=== PATIENT | male | born 1980 | race Caucasian/White ===

== ENCOUNTER 2016-06-07 08:07 | Outpatient (CLI) ==
[2014-11-29 14:15] VITALS: BMI 25.1
[2016-06-07 08:32] LABS: BASOPHILS % (AUTO) 0.3 % (0.0-3.0); EOSINOPHILS # (AUTO) 0.2 K/ul (0.0-0.7); EOSINOPHILS % (AUTO) 2.8 % (0.0-7.0); HEMATOCRIT 39.4 % (42.0-52.0); HEMOGLOBIN 12.5 g/dl (14.0-18.0); IMMATURE GRANULOCYTE % (AUTO) 0.1 % (0.0-5.0); LYMPHOCYTES # (AUTO) 2.8 K/uL (0.60-3.4); MEAN CORPUSCULAR HEMOGLOBIN 28.4 pg (27.0-31.0); MEAN CORPUSCULAR HGB CONC 31.7 (31.8-35.4); MEAN CORPUSCULAR VOLUME 89.5 fl (80.0-94.0); MONOCYTES # (AUTO) 0.7 K/uL (0.4-2.0); MONOCYTES % (AUTO) 8.9 (0-10); NEUTROPHILS # (AUTO) 3.9 K/ul (2.0-6.9); NEUTROPHILS % (AUTO) 50.9; PLATELET COUNT 291 10^3/uL (140-440); WHITE BLOOD COUNT 7.57 K/ul (4.2-10.2)
--- NOTE | 2016-06-07 08:49 | DI ---
EXAM: Three views of the cervical spine HISTORY: Neck pain. COMPARISON: None FINDINGS: There is no acute compression fracture or subluxation. There is straightening the cervica l spine. There is narrowing and anterior disc osteophyte noted at C6-C7. The facets and posterior processes are normal. The odontoid process is unremarkable as visualized. IMPRESSION: Mild disc space narrowing and anterior disc osteophyte noted at C6-C7. Straightening t he cervical spine may represent positioning or muscle spasm.
--- NOTE | 2016-06-07 08:53 | DI ---
EXAM: Thoracic spine three views HISTORY: Back pain FINDINGS / IMPRESSION: Mild scoliosis. There is slight exaggeration of cervical lordosis. No acut e fracture or significant loss of vertebral body height. Mild degenerative endplate changes mid tho racic level.
--- NOTE | 2016-06-07 08:56 | DI ---
EXAM: Lumbar spine radiographs. HISTORY: Back pain. COMPARISON: None available. Abdominal CT 11/13/2014. TECHNIQUE: 5 views of the lumbar spine. FINDINGS: Moderate right convex curvature centered near L2-3 noted. Alignment is normal. Vertebra l body heights are maintained. Disc heights are preserved in the lumbar spine. Mild chronic anteri or wedging deformity of T12 noted. Mild endplate osteophyte formation seen in the lower thoracic an d upper lumbar spine. No fracture or subluxations seen. Sacral arcuate lines are intact IMPRESSION: 1. Right convex upper lumbar curvature. 2. Mild degenerative disc disease of the lower thoracic and upper lumbar spine. 3. Chronic mild anterior wedging deformity of T12.
[2016-06-07 09:10] LABS: ALBUMIN 3.4 g/dL (3.4-5.0); ALBUMIN/GLOBULIN RATIO 1.1; ANION GAP 12.5; BILIRUBIN,TOTAL 0.17 mg/dL (0.00-1.20); BUN/CREATININE RATIO 15.53; CALCIUM 8.8 mg/dL (8.2-10.2); CHOL/HDL RATIO 5.2 (4.5-6.4); CREATININE 1.03 mg/dL (0.60-1.10); POTASSIUM 4.5 mmol/L (3.5-5.1); TOTAL PROTEIN 6.5 g/dL (6.4-8.2)
== END 2016-06-07 08:08 | disposition home or self-care (01) ==
LOC: LAB 08:07
PROVIDERS: ATTEND Nurse Practitioner Family
DX: Z00.00 Encounter for general adult medical examination without abnormal findings (principal); Z86.59 Personal history of other mental and behavioral disorders; M54.9 Dorsalgia, unspecified
CPT/HCPCS: 36415; 80053; 80061; 84439; 84443; 85025

== ENCOUNTER 2016-06-08 12:11 | Outpatient (CLI) ==
[2014-11-29 14:15] VITALS: BMI 25.1
--- NOTE | 2016-06-09 13:48 | MRI ---
EXAM: Lumbar spine MRI without contrast. HISTORY: Lumbar disc degeneration. COMPARISON: Lumbar spine radiographs 06/07/2016, thoracic spine radiographs 06/07/2016, CT abdomen and pelvis 11/13/2014 and chest radiographs 05/29/2009. TECHNIQUE: Multiplanar, multisequence MR images were acquired of the lumbar spine without contrast. FINDINGS: Small ribs are present bilaterally at T12. There are five non-rib bearing lumbar type ve rtebra. There is mild kyphosis in the lower thoracic spine due to mild chronic anterior wedging of the T11 vertebra and moderate chronic anterior wedging of T12. There is irregularity of the endplate s at T10-11 and T11-12 with small chronic Schmorl's nodes from T10 through L2. There is minor chroni c anterior wedging of L1 with mildly irregular biconcave endplates. There is mild accentuation of th e usual lumbar lordosis and there is 2 mm retrolisthesis of L2 on L3 and 2.5 mm anterolisthesis of L 5 on S1 in this patient with chronic bilateral L5 pars interarticularis defects. Intrinsic bone mar row signal is normal. There is osteophytosis with mild disc space narrowing disc desiccation at L2- 3 and mild disc space narrowing at L5-S1. Conus medullaris ends at T12-L1 and has normal signal int ensity. The visualized liver, gallbladder, spleen and kidneys are unremarkable. Respiratory motion limits d etail. There are no paravertebral masses. There is an intermediate T2 1.5 cm x 1.8 cm left adrenal lesion that is unchanged compared to 11/13/2014 and statistically most likely represents an adenoma . L1-2: The intervertebral disc is normal. L2-3: There is retrolisthesis of L2 on L3 and there is a mild disc bulge that minimally narrows the inferior neural foramina bilaterally. Mild bilateral facet and ligamentum flavum hypertrophy is pr esent. There is no central canal stenosis or significant foraminal stenosis. L3-4: There is a minimal disc bulge that is considered physiologic. A tiny chronic Schmorl's node is present on the left L4 superior endplate. There is no central canal stenosis or foraminal stenos is. L4-5: The intervertebral disc is normal. There is mild bilateral hypertrophic facet arthropathy an d ligamentum flavum hypertrophy without foraminal stenosis or central canal stenosis. L5-S1: There is anterolisthesis of L5 on S1 due to chronic bilateral L5 pars interarticularis defec ts. There is minor bilateral foraminal stenosis, greater on the left. There is no central canal st enosis. IMPRESSION: 1. Mild chronic anterior wedging T11 vertebrae. Moderate chronic anterior wedging of T12. 2. Mild lower thoracic and upper lumbar degenerative endplate changes with small chronic Schmorl's nodes from T10-L2 and a tiny chronic Schmorl's node at L4. 3. 2.5 mm anterolisthesis L5 on S1 due to chronic bilateral L5 pars interarticularis defects.
== END 2016-06-08 12:12 | disposition home or self-care (01) ==
LOC: RAD 12:11
PROVIDERS: ATTEND Nurse Practitioner Family
DX: M51.36 Other intervertebral disc degeneration, lumbar region (principal)

== ENCOUNTER 2016-07-03 14:50 | Outpatient (CLI) ==
[2014-11-29 14:15] VITALS: BMI 25.1
--- NOTE | 2016-07-03 15:49 | CT ---
EXAM: CT abdomen pelvis without contrast HISTORY: Right upper quadrant pain COMPARISON: CT abdomen pelvis 11/13/2014 and 02/17/2010 and MRI lumbar spine 06/08/2016 TECHNIQUE: Serial axial images of the abdomen pelvis were performed from the lung bases through the inferior pelvis without contrast. These were viewed in multiple planes. FINDINGS: The lung bases are clear. Evaluation is limited due to lack of contrast. The liver is unremarkable. Gallbladder is contracte d with no visualized stones. The adrenal glands are unchanged with a low attenuation left adrenal n odule measuring 1.7 cm in diameter with Hounsfield units consistent with adenomas. The right kidney demonstrates four nonobstructing stones. The largest measuring 0.5 cm in diameter. There is no hy dronephrosis, hydroureter or distal ureteral stone. The left kidney demonstrates no visualized ston e. There is no hydronephrosis, hydroureter or stone. The spleen is unremarkable. The pancreas is unremarkable. The stomach is mildly distended. Small bowel in the abdomen pelvis is unremarkable. The colon demonstrates stool and gas distended t hroughout the transverse colon and cecum. The appendix is not visualized. There is no inflammatory changes in the right lower quadrant identified. Urinary bladder is partially distended. Prostate is unremarkable. There is no free air, free fluid or lymphadenopathy. There is degenerative diseas e of the spine with stable compression deformity at T12 with pars defects at L5. IMPRESSION: 1. No acute intra-abdominal or pelvic process to account for patient's symptoms. 2. Nonobstructing right renal stones. 3. Scattered degenerative disease of the lumbar spine is unchanged in comparison to prior study. 4. Unchanged adrenal adenomas.
== END 2016-07-03 14:51 | disposition home or self-care (01) ==
LOC: RAD 14:50
PROVIDERS: ATTEND Nurse Practitioner Family
DX: R10.84 Generalized abdominal pain (principal)

== ENCOUNTER 2018-10-08 16:00 | Outpatient (CLI) ==
[2014-11-29 14:15] VITALS: BMI 25.1
--- NOTE | 2018-10-09 08:47 | DI ---
EXAM: Thoracolumbar spine, two-view HISTORY: Lumbar radiculopathy COMPARISON: None TECHNIQUE: Two views thoracolumbar spine were performed with imaging from approximately T8-L4. FINDINGS/IMPRESSION: Vertebral bodies normal height. Multilevel marginal osteophyte formation. Int ervertebral disc spaces maintained. Probable chronic anterior wedging of T11 and T12, very poorly vi sualized. No acute fracture. Grade 1 retrolisthesis T12 on L1. Mild rightward curvature lumbar spin e.
== END 2018-10-08 16:01 | disposition home or self-care (01) ==
LOC: RAD 16:00
PROVIDERS: ATTEND Nurse Practitioner Family
DX: M54.16 Radiculopathy, lumbar region (principal)

== ENCOUNTER 2018-10-19 10:04 | Emergency (ER) ==
[2018-10-19 10:13] VITALS: BP 129/87; TEMP 98.3; BMI 24.5
--- NOTE | 2018-10-19 10:47 | ED.PDOC ---
General ED Provider: Dr. KEVIN BARRERA Chief Complaint: Tooth Problem Stated Complaint: Right upper canine tooth ache for one day. seen PCP who is trying to refer to Dentist. Took Tylenol today but has not helped. Able to take Ibuprofren but has none Time Seen by Physician: 10:30 Information Source: Patient Primary Care Provider: GHAZALA TREVIÑO Nursing and Triage Documentation Reviewed and Agree: Yes Does patient meet sepsis criteria?: No System Inflammatory Response Syndrome: Not Applicable Sepsis Protocol: For patient's 13 years and over: Temp is 96.8 and below OR 101 and greater Pulse >90 BPM Resp >20/minute Acutely Altered Mental Status Are patient's symptoms suggestive of a new infection, such as: -Pneumonia -Skin, Soft Tissue -Endocarditis -UTI -Bone, Joint Infection -Implantable Device -Acute Abdominal Infection -Wound Infection -Meningitis -Blood Stream Catheter Infection -Unknown EENT Complaint Exam - Dental/Oral Complaint/Exam Mechanism of Injury: No known trauma Onset/Duration: 1 day Symptoms Are: Still present Timing: Constant Initial Severity: Severe Current Severity: Severe Location: Right upper canine Character: Reports: Sharp, Aching, Throbbing Aggravating: Reports: Heat, Cold, Chewing Alleviating: Reports: None Associated Signs and Symptoms: Reports: Swelling Tooth Findings: Present: Percussion tenderness, Gross decay, Gross caries, Dental fracture Cervical Lymphadenopathy Present: Yes (right Submandibular ) Facial Swelling Present: Yes (mild ) Bleeding Present: No Oropharynx Findings: Absent: Clots, Active bleeding Septal Hematoma: No Foreign Body Present: No Dysphagia Present: No Drooling Present: No Asymmetrical Tonsillar Swelling Present: No Uvula Midline: No Valerie-tonsillar Fluctuence: No Trismus Present: No Palatal Petechiae Present: No Scarlatinaform Rash Present: No Lesions: Absent: Lip, Gums, Tongue, Buccal Mucosa, Pharynx Exanthem: Absent: Lip, Gums, Tongue, Buccal Mucosa, Pharynx Vesicles: Absent: Lip, Gums, Tongue, Buccal Mucosa, Pharynx Teeth Picture: 1 - gross decay with fx tooth at #6 Differential Diagnoses: Dental Abcess, Dental Caries, Fractured Tooth Review of Systems - Review Of Systems Constitutional: Reports: No symptoms Eyes: Reports: No symptoms Ears, Nose, Mouth, Throat: Reports: Mouth pain, Mouth swelling Respiratory: Reports: No symptoms Cardiac: Reports: No symptoms GI: Reports: No symptoms : Reports: No symptoms Musculoskeletal: Reports: No symptoms Skin: Reports: No symptoms Neurological: Reports: No symptoms Endocrine: Reports: No symptoms Hematologic/Lymphatic: Reports: No symptoms All Other Systems: Reviewed and Negative Past Medical History - Past Medical History Previously Healthy: Yes Endocrine: Reports: Dyslipidemia Cardiovascular: Reports: None Respiratory: Reports: None Hematological: Reports: None Gastrointestinal: Reports: None Genitourinary: Reports: Kidney stones Neuro/Psych: Reports: None Musculoskeletal: Reports: None Cancer: Reports: None - Surgical History General Surgical History: Reports: Other (Renal stents for Kidney stones. ) - Family History Family History: Reports: Unknown - Social History Smoking Status: Current every day smoker Hx Substance Use: No Alcohol Screening: None - Immunizations Tetanus Shot up to Date: No Physical Exam - Physical Exam Appearance: Ill-appearing Ill-appearing: Mild Pain Distress: Moderate Eyes: SUNG, EOMI, Conjunctiva clear ENT: Nose normal, Oropharynx normal Neck: Supple Respiratory: Airway patent, Breath sounds clear, Breath sounds equal, Respirations nonlabored Cardiovascular: RRR, Pulses normal, No rub, No murmur Neurological: Alert, Oriented Psychiatric: Anxious Critical Care Note - Critical Care Note Total Time (mins): 0 Course - Course Vital Signs: Temp Pulse Resp BP Pulse Ox 10/19/18 10:05 98.3 F 93 H 16 129/87 96 Departure - Departure Time of Disposition: 10:53 Disposition: HOME SELF-CARE Discharge Problem: Dental abscess, Pain, dental Instructions: Dental Abscess (ED), Toothache (ED) Condition: Stable Pt referred to PMD for follow-up: Yes IPMP verified?: No Additional Instructions: Keep apt with Dentist soon take antibiotics as prescribed Prescriptions: Clindamycin HCl 300 mg PO TID #30 capsule Ibuprofen [Motrin] 600 mg PO Q6H PRN #30 tablet PRN Reason: Analgesia Allergies/Adverse Reactions: Allergies Penicillins Allergy (Severe, Unverified 06/02/16 14:19) rash, hives ketorolac tromethamine [From Toradol] Allergy (Mild, Unverified 06/02/16 14:44) Rash tramadol HCl [From Ultra] Adverse Reaction (Verified 11/29/14 14:19) Home Medications: Ambulatory Orders Olanzapine [Zyprexa] 10 mg PO BID 11/13/14 Oxcarbazepine [Trileptal] 225 mg PO BID 11/13/14 Dicyclomine HCl [Bentyl] 10 mg PO PRN 06/29/16 Clindamycin HCl 300 mg PO TID #30 capsule 10/19/18 Ibuprofen [Motrin] 600 mg PO Q6H PRN #30 tablet 10/19/18 Disposition Discussed With: Patient
== END 2018-10-19 10:58 | disposition home or self-care (01) ==
LOC: ED 10:04
DX: K08.89 Other specified disorders of teeth and supporting structures (principal); K04.7 Periapical abscess without sinus; K02.7 Dental root caries; S02.5XXA Fracture of tooth (traumatic), initial encounter for closed fracture; F17.210 Nicotine dependence, cigarettes, uncomplicated
CPT/HCPCS: 99282

== ENCOUNTER 2019-01-23 14:36 | Outpatient (CLI) ==
[2018-12-19 21:51] VITALS: BMI 24.3
--- NOTE | 2019-01-23 15:47 | CT ---
EXAM: CT of the abdomen pelvis without contrast. History: Right flank pain. Comparison: CT abdomen pelvis 07/03/2016 Technique: Multiplanar CT images through the abdomen pelvis were obtained without the administration of IV contrast Findings: Lung bases are clear. Stable chronic compression deformity at T12. Punctate 1 mm left renal calculus. There are multiple right renal calculi with the largest seen in t he right renal pelvis measuring 7 mm. This calculus within the renal pelvis is causing mild right hy dronephrosis. There are no ureteral calculi. No gallstones identified by CT. No focal liver or spl enic lesions. No peripancreatic inflammation. No change in the small benign bilateral adrenal adeno mas. No bowel obstruction. No free air and no ascites. Bladder is not well distended. Prostate is not enlarged. No perirectal inflammation. Scattered colonic stool. No abdominal aortic aneurysm. Impression: 1. 7 mm calculus within the right renal pelvis causing mild right hydronephrosis. 2. Bilateral nephrolithiasis. 3. Stable benign bilateral adrenal adenomas
== END 2019-01-23 14:37 | disposition home or self-care (01) ==
LOC: RAD 14:36
PROVIDERS: ATTEND Nurse Practitioner Family
DX: N20.0 Calculus of kidney (principal)

== ENCOUNTER 2019-01-23 18:53 | Emergency (ER) ==
[2019-01-23 18:59] VITALS: BP 136/72; TEMP 97.6; BMI 24.2
--- NOTE | 2019-01-23 19:19 | ED.PDOC ---
General ED Provider: Dr. JEREMY BEASLEY Chief Complaint: Kidney Stone Stated Complaint: Sent to ER by [facility]; hx kidney stones - last seen by Dr. Reyes, Urologist - [address] was [address] and shows punctate L renal stone - 1 mm and R multiple with largest 7 mm. Time Seen by Physician: 19:12 Mode of Arrival: Walk-In Information Source: Patient Exam Limitations: No limitations Primary Care Provider: GHAZALA TREVIÑO Seen Within Last 72 Hours for Same Complaint By: Clinic Nursing and Triage Documentation Reviewed and Agree: Yes Does patient meet sepsis criteria?: No System Inflammatory Response Syndrome: Not Applicable Sepsis Protocol: For patient's 13 years and over: Temp is 96.8 and below OR 101 and greater Pulse >90 BPM Resp >20/minute Acutely Altered Mental Status Are patient's symptoms suggestive of a new infection, such as: -Pneumonia -Skin, Soft Tissue -Endocarditis -UTI -Bone, Joint Infection -Implantable Device -Acute Abdominal Infection -Wound Infection -Meningitis -Blood Stream Catheter Infection -Unknown Review of Systems - Review Of Systems Constitutional: Reports: No symptoms Respiratory: Reports: No symptoms : Reports: Hematuria Musculoskeletal: Reports: Back pain All Other Systems: Reviewed and Negative Past Medical History - Past Medical History Previously Healthy: Yes Endocrine: Reports: Dyslipidemia Cardiovascular: Reports: None Respiratory: Reports: None Hematological: Reports: None Gastrointestinal: Reports: None Genitourinary: Reports: Kidney stones Neuro/Psych: Reports: None Musculoskeletal: Reports: None Cancer: Reports: None - Surgical History General Surgical History: Reports: Other (Renal stents for Kidney stones. ) - Family History Family History: Reports: Heart - Social History Smoking Status: Current every day smoker, Heavy tobacco smoker Hx Substance Use: Yes (ALCOHOL IN THE PAST) Alcohol Screening: None - Immunizations Tetanus Shot up to Date: Yes Physical Exam - Physical Exam Appearance: Well-appearing Pain Distress: Mild Respiratory: Airway patent, Breath sounds clear, Respirations nonlabored Cardiovascular: RRR, Pulses normal GI/: Soft, Nontender Skin: Warm, Dry Neurological: Sensation intact, Motor intact, Alert, Oriented Psychiatric: Affect appropriate, Mood appropriate Physician Notification - Case Discussed Physician Notified: Dr. Watson/Urologist Time of Notification: 19:40 (Pt to call office tomorrow) Critical Care Note - Critical Care Note Total Time (mins): 10 Course - Course Hematology/Chemistry: 01/23/19 19:41 01/23/19 19:41 Orders, Labs, Meds: Lab Review 01/23/19 01/23/19 01/23/19 19:30 19:41 19:41 WBC 6.40 RBC 4.63 L Hgb 13.3 L Hct 41.1 L MCV 88.8 MCH 28.7 MCHC 32.4 RDW Coeff of Jose 15.0 H Plt Count 266 Immature Gran % (Auto) 0.2 Neut % (Auto) 56.3 Lymph % (Auto) 33.8 [place] % (Auto) 7.7 Eos % (Auto) 1.7 Baso % (Auto) 0.3 Immature Gran # (Auto) 0.0 Neut # (Auto) 3.6 Lymph # (Auto) 2.2 [place] # (Auto) 0.5 Eos # (Auto) 0.1 Baso # (Auto) 0.0 Sodium 137.4 Potassium 3.97 Chloride 107.1 H Carbon Dioxide 23.1 Anion Gap 11.17 BUN 15.9 Creatinine 1.22 H Estimated GFR (MDRD) 67.00 BUN/Creatinine Ratio 13.03 Glucose 90.6 Calcium 9.07 Total Bilirubin 0.28 AST 25.3 ALT 22.5 Alkaline Phosphatase 89.6 Total Protein 7.17 Albumin 4.28 Globulin 2.89 Albumin/Globulin Ratio 1.48 Urine Color Yellow Urine Clarity Cloudy Urine pH 6.0 Ur Specific [place] >=1.030 Urine Protein Negative Urine Glucose (UA) Negative Urine Ketones Negative Urine Blood 3+ Urine Nitrite Negative Urine Bilirubin Negative Urine Urobilinogen 0.2 Ur Leukocyte Esterase Negative Urine Microscopic RBC Tntc Ur Squamous Epith Cells 0-2 Urine Mucus Trace Orders Category Date Time Status CBC W/ AUTO DIFF Stat LAB 01/23/19 19:41 Completed COMPREHENSIVE METABOLIC PANEL Stat LAB 01/23/19 19:41 Completed URINALYSIS C & S IF INDICATED Stat LAB 01/23/19 19:30 Completed Vital Signs: Temp Pulse Resp BP Pulse Ox 01/23/19 18:53 97.6 F 76 16 136/72 97 Departure - Departure Time of Disposition: 20:03 Disposition: HOME SELF-CARE Discharge Problem: Renal calculi Instructions: Kidney Stones (ED) Condition: Good Pt referred to PMD for follow-up: Yes (Follow up with Urologist) IPMP verified?: No (N/A) Additional Instructions: Call urology tomorrow; let them know the ER Doctor spoke with Dr. Watson last night about your history of kidney stones. When you have the appointment to be seen by Urology bring the CD of your CAT scan with you. Take medications already prescribed by [facility]. Allergies/Adverse Reactions: Allergies Penicillins Allergy (Severe, Verified 01/23/19 19:10) rash, hives ketorolac tromethamine [From Toradol] Allergy (Mild, Verified 01/23/19 19:10) Rash tramadol HCl [From Ultram] Adverse Reaction (Verified 01/23/19 19:10) Hives, RASH Home Medications: Ambulatory Orders Gabapentin 600 mg PO TID 12/19/18 Ibuprofen 400 mg PO Q4H PRN 12/19/18 Buspirone HCl [Buspar] 5 mg PO BID 01/23/19 Hydrocodone/Acetaminophen [Hydrocodone-Acetamin 5-325 mg] 1 tab PO Q6HR PRN Hydroxyzine HCl 50 mg PO BID PRN 01/23/19 Ondansetron HCl [Zofran] 4 mg PO DIRECTED PRN 01/23/19 Pravastatin Sodium [Pravachol] 20 mg PO DAILY 01/23/19 Tamsulosin HCl [Flomax] 0.4 mg PO DAILY 01/23/19
== END 2019-01-23 20:14 | disposition home or self-care (01) ==
LOC: ED 18:53
DX: N20.0 Calculus of kidney (principal); Z87.442 Personal history of urinary calculi; F17.210 Nicotine dependence, cigarettes, uncomplicated
CPT/HCPCS: 36415; 80053; 81001; 85025; 99283

== ENCOUNTER 2019-01-29 22:14 | Outpatient (CLI) ==
[2019-01-29 22:54] VITALS: BMI 24.7
== END 2019-01-29 22:37 | disposition critical access hospital (66) ==
LOC: AMBL 22:14
PROVIDERS: ATTEND Internal Medicine Geriatric Medicine
DX: N20.0 Calculus of kidney (principal); Z87.442 Personal history of urinary calculi

== ENCOUNTER 2019-02-03 18:43 | Outpatient (CLI) ==
[2019-02-03 19:29] VITALS: BMI 24.4
== END 2019-02-03 19:09 | disposition critical access hospital (66) ==
LOC: AMBL 18:43
PROVIDERS: ATTEND Family Medicine
DX: R10.31 Right lower quadrant pain (principal); R10.32 Left lower quadrant pain; R11.2 Nausea with vomiting, unspecified